=== PATIENT | female | born 1990 | race Caucasian/White ===

== ENCOUNTER 2016-07-08 11:09 | Emergency (ER) | payer MEDICAID ==
[~2016-07-08 11:09] MED LIST: BACTRIM DS TAB1 EAC2 PO; BENTYL10 M1 PO; DIFLUCAN100 M1 PO; IBUPROFEN800 M1 PO; NO HOME MEDICATION XX
[2016-07-08] MEDS ORDERED: VITAMIN D5000 UNI1 PO (11:56)
[2016-07-08 12:18] LABS: URINE BILIRUBIN NEGATIVE (NEG); URINE BLOOD MODERATE (NEG); URINE GLUCOSE (UA) NEGATIVE (NEG); URINE KETONE NEGATIVE (NEG); URINE LEUKOCYTE ESTERASE POSITIVE (NEG); URINE NITRITE NEGATIVE (NEG); URINE PROTEIN SMALL (NEG)
[2016-07-08 12:19] LABS: URINE COLOR YELLOW
[2016-07-08 12:20] LABS: URINE APPEARANCE HAZY
[2016-07-08 12:41] LABS: URINE BACTERIA 1+; URINE MUCUS 1+
[2016-07-08 12:59] LABS: BASO % 0.6 % (0-2); EOS % 2.4 % (0-7); EOSINOPHIL ABSOLUTE COUNT 0.2 tho/cmm (0.0-0.7); HCT-HEMATOCRIT 39.8 % (34.0-49.0); HGB-HEMOGLOBIN 13.4 gm/dl (12.0-15.5); IMMATURE GRANULOCYTES ABSOLUTE 0.01 tho/cmm (0-0.03); IMMATURE GRANULOCYTES PERCENT 0.2 % (0-0.3); LYMPH ABSOLUTE COUNT 2.3 tho/cmm (0.8-4.5); MCH (MEAN CORPUSCULAR HGB) 27.9 pg (28.0-32.0); MCHC MEAN CORPUSCULAR HGB CONC 33.7 % (32.0-36.0); MCV (MEAN CELL VOLUME) 82.7 fl (82.0-96.0); MEAN PLATELET VOLUME 9.6 cmc (9.4-12.4); MONO % 9.1 % (0-12); MONOCYTE ABSOLUTE COUNT 0.6 tho/cmm (0.0-1.2); NEUTROPHIL ABSOLUTE COUNT 3.5 tho/cmm (1.6-8.0); NEUTROPHIL-AUTOMATED 3.5 tho/cmm (1.6-8.0); NEUTROPHILS % 52.7 % (40-80); PLATELET COUNT 321 tho/cmm (150-450); RED BLOOD COUNT 4.81 mil/cmm (4.00-5.20); RED CELL DISTRIBUTION WIDTH 13.4 % (12.4-16.4); WHITE BLOOD COUNT 6.6 tho/cmm (4.0-10.0)
== END 2016-07-08 14:07 ==
LOC: EDMED 11:09
PROVIDERS: Nurse Practitioner Family
DX: R10.84 Generalized abdominal pain (principal); Z88.0 Allergy status to penicillin